=== PATIENT | female | born 1975 | race Two or more races ===

== ENCOUNTER 2021-08-25 18:11 | Emergency (ER) | payer BC ==
[~2021-08-25] VITALS: Ht 172.7 cm; Wt 79.4 kg
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
[2021-08-25] MEDS ORDERED: SILVER SULFADIAZINE 50 GM JAR TP STA (18:46)
[2021-08-25] MEDS ORDERED: MORPHINE SULFATE INJ 2 MG/ML DISP.SYRIN IV ONE ×2 (19:00→21:00)
[2021-08-25] MEDS ORDERED: ONDANSETRON HCL/PF 4 MG/2 ML VIAL IV ONE (19:00)
[2021-08-25] MEDS ORDERED: IV NS 0.9% 1,000 ML IV ONE (19:00)
[2021-08-25] MEDS ORDERED: MORPHINE SULFATE INJ 4 MG/ML DISP.SYRIN ONE ×2 (19:23→20:43)
[2021-08-25] MEDS ORDERED: ONDANSETRON HCL/PF 4 MG/2 ML VIAL ONE (19:23)
[2021-08-25] MEDS ORDERED: IBUP-1955 PO (19:24)
[2021-08-25] MEDS ORDERED: HYDR-4303 PO (19:24)
[2021-08-25] MEDS ORDERED: SILV20CR13 TP (19:24)
[2021-08-25] MEDS ORDERED: TDAP [DIPH/PERTUSSIS/TET] 0.5 ML VIAL IM ONE ×2 (19:30→20:02)
--- NOTE | 2021-08-25 20:30 | NUR ---
[facility] at bedside for wound care
--- NOTE | 2021-08-25 20:41 | NUR ---
MD VERBAL ORDER 4MG MORPHINE
--- NOTE | 2021-08-25 20:44 | NUR ---
Patient discharged to home in stable condition. Written and verbal after care instructions given. Patient verbalizes understanding of instruction. Pt ambulatory, but requesting to be wheeled out to to friend's car. IV removed. Catheter intact and site benign. Pressure and 4x4 applied to site. No bleeding noted.
[2021-08-25 21:05] VITALS: BP 122/82
== END 2021-08-25 20:44 | disposition home or self-care (01) ==
LOC: ER 18:48
DX: T24.112A Burn of first degree of left thigh, initial encounter (principal); T24.211A Burn of second degree of right thigh, initial encounter; X12.XXXA Contact with other hot fluids, initial encounter; Y93.89 Activity, other specified; Y92.89 Other specified places as the place of occurrence of the external cause; Y99.8 Other external cause status
CPT/HCPCS: 16000; 90471; 90715; 96361; 96374; 96375; 96376; 99284; A6403; J2270 ×2; J2405; J7030